=== PATIENT | female | born 1960 | race Hispanic/Latino ===

== ENCOUNTER 2017-10-12 18:31 | Emergency (ER) | payer MEDICARE ==
[2017-10-12 18:39] VITALS: TEMP 98
[2017-10-12] MEDS ORDERED: Sodium Chloride 0.9% 1,000 ML IV STA (19:20)
[2017-10-12 19:28] VITALS: RESP 18
--- NOTE | 2017-10-12 19:38 | ED PDOC ---
Arrival/HPI - General Chief Complaint: Syncope Historian: Patient, Spouse - History of Present Illness Narrative History of Present Illness (Text): 10/12/17 19:31 56F no relevant pmhx presents to [facility] w/ an episode of feeling dizzy, "seeing stars" then waking up on the floor found by expected time down a couple of seconds. Episode occurred at 1800 today, after eating a couple of bites of food. report no convulsions. Denies bitting of the tongue, breakage in skin, loss of bowel or bladder function, aura after fall. Patient had a similar episode 9 years prior, cardiac work up included stress test which was negative. Denies taking new medication or recent stressors. PMD: [employer] PMH: denies PSH: Oopherectomy, tonsillectomy ALL: Lido, meperidine, sulfa SocialHx: Social ETOH, Denies Tobacco, recreational drug use FamilyHx: First Degree relatives w/ cardiac history under the age of 6 Past Medical History - Provider Review Nursing Documentation Reviewed: Yes - Travel History Have you recently traveled outside [place] w/in the past 3 mons?: No - Past History Past History: Non-Contributing - Reproductive Menopause: Yes - Cardiac Hx Cardiac Disorders: No - Pulmonary Hx Respiratory Disorders: No - Neurological Hx Neurological Disorder: No - HEENT Hx HEENT Disorder: No - Renal Hx Renal Disorder: No - Endocrine/Metabolic Hx Endocrine Disorders: No - Hematological/Oncological Hx Blood Disorders: No - Integumentary Hx Dermatological Disorder: No - Musculoskeletal/Rheumatological Hx Musculoskeletal Disorders: Yes Hx Back Pain: Yes - Gastrointestinal Hx Gastrointestinal Disorders: No - Genitourinary/Gynecological Hx Genitourinary Disorders: No - Psychiatric Hx Psychophysiologic Disorder: No Hx Substance Use: No - Surgical History Other/Comment: L OOPHERECTOMY Family/Social History - Physician Review Nursing Documentation Reviewed: Yes Family/Social History: CAD/AL Smoking Status: Never Smoked Hx Alcohol Use: Yes Frequency of alcohol use: Socially Hx Substance Use: No Allergies/Home Meds Allergies/Adverse Reactions: Allergies lidocaine Allergy (Verified 10/12/17 18:34) SHORTNESS OF BREATH meperidine [From Demerol] Allergy (Verified 10/12/17 18:34) ANAPHYLAXIS Sulfa (Sulfonamide Antibiotics) Allergy (Verified 10/12/17 18:34) HEADACHE Home Medications: Home Meds Medication Instructions Recorded Confirmed No Known Home Med 10/12/17 10/12/17 Review of Systems - Review of Systems Constitutional: absent: Fatigue, Weight Change, Fevers, Night Sweats Eyes: Vision Changes. absent: Photophobia, Eye Pain ENT: absent: Hearing Changes, Tinnitus, Rhinorrhea Cardiovascular: absent: Chest Pain, Palpitations, Edema, Calf Pain Gastrointestinal: absent: Abdominal Pain, Stool Changes, Constipation Genitourinary Female: absent: Dysuria, Frequency Musculoskeletal: Back Pain. absent: Arthralgias Skin: absent: Rash, Pruritis Neurological: absent: Headache Physical Exam Vital Signs Reviewed: Yes Vital Signs Temp Pulse Resp BP Pulse Ox 10/12/17 22:03 50 L 18 109/62 98 10/12/17 19:27 46 L 18 115/60 99 10/12/17 18:34 98.0 F 52 L 16 146/72 99 Temperature: Afebrile Blood Pressure: Normal Pulse: Bradycardic Respiratory Rate: Normal Appearance: Positive for: Well-Appearing, Non-Toxic, Comfortable Pain Distress: None Mental Status: Positive for: Alert and Oriented X 3 - Systems Exam Head: Present: Atraumatic, Normocephalic Pupils: Present: PERRL Extroacular Muscles: Present: EOMI. No: Gaze Palsy Conjunctiva: Present: Normal Mouth: Present: Moist Mucous Membranes Pharnyx: No: ERYTHEMA, EXUDATE Nose (Internal): Present: Normal Inspection, No Active Bleeding. No: Epistaxis Neck: Present: Other (Decreased active ROM right neck sidebending and right rotation. Remainder Full ROM. Neagtive spurlings). No: Meningeal Signs, MIDLINE TENDERNESS Respiratory/Chest: Present: Clear to Auscultation, Good Air Exchange. No: Respiratory Distress, Accessory Muscle Use Cardiovascular: Present: Regular Rate and Rhythm, Normal S1, S2. No: Murmurs Abdomen: Present: Other (soft). No: Tenderness, Distention, Peritoneal Signs Upper Extremity: Present: Normal Inspection, Normal ROM, NORMAL PULSES. No: Edema Lower Extremity: Present: Normal Inspection. No: Edema, CALF TENDERNESS Neurological: Present: GCS=15, CN II-XII Intact Skin: Present: Warm, Dry, Rashes Psychiatric: Present: Alert, Oriented x 3 Medical Decision Making ED Course and Treatment: 10/12/17 19:44 CBC/CMP/Trops CT head and neck Bolus 1L of fluid Orthostatic vitals revaluate - Lab Interpretations Lab Results: 10/12/17 19:37 10/12/17 19:37 Lab Results 10/12/17 19:37: D-Dimer, Quantitative 201 10/12/17 19:37: Sodium 140, Potassium 4.7, Chloride 103, Carbon Dioxide 30, Anion Gap 12, BUN 18, Creatinine 0.9, Est GFR ( Amer) > 60, Est GFR (Non- Af Amer) > 60, Random Glucose 102, Calcium 10.3, Total Bilirubin 0.9, AST 31, ALT 24, Alkaline Phosphatase 62, Troponin I < 0.01, Total Protein 7.3, Albumin 4.2, Globulin 3.1, Albumin/Globulin Ratio 1.4 10/12/17 19:37: WBC 5.4, RBC 3.48 L, Hgb 10.8 L, Hct 33.4 L, MCV 96.0, MCH 31.0 , MCHC 32.3, RDW 13.6, Plt Count 312, MPV 9.8, Gran % 45.9 L, Lymph % (Auto) 40.1 H, Hardy % (Auto) 8.1 H, Eos % (Auto) 5.3 H, Baso % (Auto) 0.6, Gran # 2.49 , Lymph # (Auto) 2.2, Hardy # (Auto) 0.4, Eos # (Auto) 0.3, Baso # (Auto) 0.03 - RAD Interpretation Radiology Orders: 10/12/17 19:20 CHEST TWO VIEWS (PA/LAT) [RAD] Stat 10/12/17 19:29 NECK SOFT TISSUE W/O CONTRAST [CT] Stat 10/12/17 19:30 HEAD W/O CONTRAST [CT] Stat - EKG Interpretation Interpreted by ED Physician: Yes Type: 12 lead EKG Comparison: No previous EKG avail. - Medication Orders Current Medication Orders: Discontinued Medications Sodium Chloride (Sodium Chloride 0.9%) 1,000 mls @ 999 mls/hr IV .Q1H1M STA Stop: 10/12/17 20:20 Last Admin: 10/12/17 19:40 Dose: 999 mls/hr eMAR Start Stop Document 10/12/17 19:40 GMD (Rec: 10/12/17 19:40 GMD [id number]) Intravenous Solution Start Date 10/12/17 Start Time 19:40 End Date 10/12/17 End time 20:40 Total Infusion Time 60 Ondansetron HCl (Zofran Inj) 4 mg IVP STAT STA Stop: 10/12/17 19:56 Last Admin: 10/12/17 20:19 Dose: 4 mg IVP Administration Document 10/12/17 20:19 GMD (Rec: 10/12/17 20:19 GMD [id number]) Charges for Administration # of IVP Administrations 1 NIHSS Stroke Scale 3 - Date/Time Evaluation Performed Date Performed: 10/12/17 Time Performed: 19:15 When Was NIHSS Performed: 24 hours post onset S/S - How Severe is the Stroke Level of Consciousness: 0=Alert LOC to Questions: 0=Both comments correct LOC to commands: 0=Obeys both correctly Best Gaze: 0=Normal Visual: 0=No visual loss Facial: 0=Normal Motor Arm - Left: 0=No drift Motor Arm - Right: 0=No drift Motor Leg - Left: 0=No drift Motor Leg - Right: 0=No drift Limb Ataxia: 0=Absent Sensory: 0=Normal Best Language: 0=No aphasia Dysarthia: 0=Normal articulation Extinction & Inattention (Neglect): 0=Normal, no object Score: 0 - PA / TAXI DANCER / Resident Statement MD/DO has reviewed & agrees with the documentation as recorded. MD/DO has examined the patient and agrees with the treatment plan. Disposition/Present on Arrival - Present on Arrival Any Indicators Present on Arrival: No History of DVT/PE: No History of Uncontrolled Diabetes: No Urinary Catheter: No History of Decub. Ulcer: No History Surgical Site Infection Following: None - Disposition Have Diagnosis and Disposition been Completed?: Yes Diagnosis: Syncope Disposition: HOME/ ROUTINE Disposition Time: 22:16 Patient Problems: Current Active Problems Problem Status Onset Syncope Acute Condition: GOOD Discharge Instructions (ExitCare): Syncope (Fainting), Syncope (ED) Additional Instructions: You were treated in the ED today for syncope (passing out) otherwise without any nausea/vomiting/headache/difficulty breathing/abdomen pain/numbness/pain with urination. You were otherwise breathing easily, good strength/sensation, alert/oriented, walking easily, clear lungs, no abdomen tenderness, no fever temp 98.0, stable heart rate 57, stable breathing rate 16, excellent oxygen level 98% room air. we recommend repeat in 2-3 days primary care office to determine further treatment and possible cardiology work up. You have blood tests no infection count 5.4, stable blood level [id number], stable chemistry potassium 4.7, low risk of blood clot 400 D-Dimer, radiology reports reviewed of Head and neck CT IMPRESSION: Negative noncontrast head CT, no acute findings on neck CT, ECG shows sinus bradycardia, w/ no changes in Rhythm or cardiac ischemia, Recommend follow-up primary care 2-3 days to review symptoms. 4. If any worsening pain, fever, chills, nausea, vomiting, difficulty breathing, numbness, loss of limb function , pain with urination or any medical condition then return to the ED. Please contact your doctor or call one of the physicians/clinics you have been referred to that are listed on the Patient Visit Information form that is included in your discharge packet. Bring any paperwork you were given at discharge with you along with any medications you are taking to your follow up visit. Our treatment cannot replace ongoing medical care by a primary care provider (PCP) outside of the emergency department. Thank you for allowing the [facility] team to be part of your care today. If you had an X-Ray or CT scan: A Radiologist will review the ED reading if any change in treatment is needed we will contact you. If you had a blood, urine, or wound culture: It will take several days for the results, if any change in treatment is needed we will contact you. Referrals: Ina Dash MD [Primary Care Provider] - Follow up with primary Forms: [employer] (Albanian)
[2017-10-12 19:55] LABS: ALB/GLOB RATIO 1.4 (1.1-1.8); ALBUMIN 4.2 g/dL (3.0-4.8); ALT/SGPT 24 U/L (7-56); AST/SGOT 31 U/L (14-36); BASO # 0.03 K/mm3 (0.0-2.0); BASO % 0.6 % (0.0-3.0); BLOOD UREA NITROGEN 18 mg/dL (7-21); CALCIUM 10.3 mg/dL (8.4-10.5); EOS # 0.3 (0.0-0.7); EOS % 5.3 % (1.5-5.0); GFR AFRICAN-AMERICAN > 60; GFR NON-AFRICAN AMERICAN > 60; GRAN # 2.49 (1.4-6.5); GRAN % 45.9 % (50.0-68.0); HEMOGLOBIN 10.8 g/dL (12.0-16.0); LYMPH # 2.2 (1.2-3.4); LYMPH % 40.1 % (22.0-35.0); MEAN CORPUSCULAR HGB CONC 32.3 g/dl (31.0-37.0); MEAN PLATELET VOLUME 9.8 fl (7.0-11.0); MONO # 0.4 (0.1-0.6); MONO % 8.1 % (1.0-6.0); RBC 3.48 10^6/uL (3.5-6.1); RED CELL DISTRIBUTION WIDTH 13.6 % (11.5-14.5); WHITE BLOOD COUNT 5.4 10^3/ul (4.5-11.0)
[2017-10-12 20:06] LABS: TROPONIN I < 0.01 ng/mL
[2017-10-12 22:04] VITALS: BP 109/62; PULSE 50; O2SAT 98
--- NOTE | 2017-10-13 08:45 | RAD ---
HISTORY: syncope COMPARISON: 11/01/2014 TECHNIQUE: Chest PA and lateral FINDINGS: LUNGS: No active pulmonary disease. PLEURA: No significant pleural effusion identified. No pneumothorax apparent. CARDIOVASCULAR: Normal. OSSEOUS STRUCTURES: No significant abnormalities. VISUALIZED UPPER ABDOMEN: Normal. OTHER FINDINGS: None. IMPRESSION: No active disease.
--- NOTE | 2017-10-13 09:59 | CT ---
PROCEDURE: CT HEAD WITHOUT CONTRAST. HISTORY: s/p fall COMPARISON: None available. TECHNIQUE: Axial computed tomography images were obtained through the head/brain without intravenous contrast. Radiation dose: Total exam DLP = 980 mGy-cm. This CT exam was performed using one or more of the following dose reduction techniques: Automated exposure control, adjustment of the mA and/or kV according to patient size, and/or use of iterative reconstruction technique. FINDINGS: HEMORRHAGE: No intracranial hemorrhage. BRAIN: No mass effect or edema. No atrophy or chronic microvascular ischemic changes. VENTRICLES: Unremarkable. No hydrocephalus. CALVARIUM: Unremarkable. PARANASAL SINUSES: Unremarkable as visualized. No significant inflammatory changes. MASTOID AIR CELLS: Unremarkable as visualized. No inflammatory changes. OTHER FINDINGS: The report concurs with the preliminary [facility] report IMPRESSION: No acute findings
--- NOTE | 2017-10-13 10:04 | CT ---
PROCEDURE: CT NECK WITHOUT CONTRAST HISTORY: s/p fall COMPARISON: None. TECHNIQUE: CT of the neck without intravenous contrast. Coronal and sagittal reformats generated. Radiation dose: DLP 309 mGy-cm This CT exam was performed using one or more of the following dose reduction techniques: Automated exposure control, adjustment of the mA and/or kV according to patient size, and/or use of iterative reconstruction technique. FINDINGS: NASOPHARYNX: Unremarkable. SUPRAHYOID NECK: Unremarkable oropharynx, oral cavity, parapharyngeal space and retropharyngeal space. INFRAHYOID NECK: Unremarkable larynx, hypopharynx, and supraglottic space. Vocal cords intact. MASS: None. GLANDS: Parotid and submandibular glands unremarkable. Normal size thyroid gland, without nodule. LYMPH NODES: Normal. No lymphadenopathy. CERVICAL SPINE: Moderate degenerative changes at C5-6 and C6-7 OTHER FINDINGS: The report concurs with the preliminary [facility] report IMPRESSION: Unremarkable non-contrast enhanced CT of the neck.
--- NOTE | 2017-10-13 21:21 | CARD ---
APPROVED REPORT EKG Measurement Heart [id number] CA 152P1 [id number] <Conclusion> Marked sinus bradycardia Abnormal ECG
== END 2017-10-12 22:40 | disposition left against medical advice (07) ==
LOC: ED 18:31
DX: R55 Syncope and collapse (principal); Z82.49 Family history of ischemic heart disease and other diseases of the circulatory system
CPT/HCPCS: 70450; 70490; 71046; 80053; 84484; 85025; 85378; 93005; 96361; 96374; 99285; J2405; J7040